=== PATIENT | female | born 2000 | race Caucasian/White ===

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

== ENCOUNTER 2018-10-17 13:58 | Emergency (ER) | payer MEDICAID ==
[~2018-10-17] VITALS: Ht 165.1 cm; Wt 94.1 kg
[2018-10-17 14:09] VITALS: Ht 165.1 cm; Wt 94.1 kg
[2018-10-17 14:39] LABS: APPEARANCE HAZY (CLEAR); COLOR YELLOW (YELLOW); NITRITE NEGATIVE (NEGATIVE); SPECIFIC GRAVITY 1.025 (1.005-1.020)
[2018-10-17 14:40] LABS: BILIRUBIN NEGATIVE (NEGATIVE); GLUCOSE NEGATIVE (NEGATIVE); KETONE MODERATE mg/dL (NEGATIVE); PROTEIN 1+ mg/dL (NEGATIVE); UROBILINOGEN NORMAL (NORMAL)
[2018-10-17 14:41] LABS: BACTERIA MANY /hpf (NONE SEEN); RED CELLS - URINE 0-5 /hpf (0-5); WHITE CELLS - URINE 0-5 /hpf (0-5)
[2018-10-17 14:42] LABS: AMORPHOUS SEDIMENT <1+ /lpf (NONE SEEN); HYALINE CAST OCC /lpf (NONE SEEN); MUCUS >1+ /lpf (NONE SEEN)
[2018-10-17 14:45] LABS: BASOPHILS 0.1 % (0-2); EOSINOPHILS 0.8 % (0-7); HEMATOCRIT 42.9 % (36.0-48.0); IMMATURE GRANULOCYTES 0.2 % (0-5); LYMPHOCYTES 14.4 % (15-50); MCH 30.3 pg (26.0-34.0); MCV 86.7 fL (80.0-100.0); MEAN PLATELET VOLUME 11.3 fL (7.4-10.4); MONOCYTES 4.7 % (2-11); NEUTROPHILS 79.8 % (40-80); PLATELET COUNT 215 10x3/uL (130-400); RBC 4.95 10x6/uL (4.00-5.40); WBC 12.3 10x3/uL (4.8-10.8)
[2018-10-17 15:03] LABS: ALBUMIN 3.5 g/dL (3.4-5.0); ALKALINE PHOSPHATASE 47 U/L (46-116); ALT (SGPT) 60 U/L (10-68); BILIRUBIN - TOTAL 0.36 mg/dL (0.2-1.3); CALC OSMOLALITY 269 mosm/kg (275-300); CALCIUM 9.2 mg/dL (8.5-10.1); CARBON DIOXIDE 23.3 mmol/L (21.0-32.0); CHLORIDE - SERUM 103 mmol/L (98-107); CREATININE - SERUM 0.5 mg/dL (0.6-1.3); GLUCOSE 78 mg/dL (74-106); POTASSIUM - SERUM 3.7 mmol/L (3.5-5.1); PROTEIN - SERUM 7.6 g/dL (6.4-8.2); SODIUM 137 mmol/L (136-145); UREA NITROGEN 5 mg/dL (7-18); eGFR NON AFRICAN AMERICAN > 90 mL/min (90-120)
[2018-10-17 15:38] LABS: HCG - QUANTITATIVE (MATERNAL) 89880 mIU/mL
[2018-10-17] MEDS ORDERED: ZOFRAN ODT4 MG/UDTAB PO (17:46)
[2018-10-17 17:53] VITALS: BP 125/48
== END 2018-10-17 17:54 | disposition home or self-care (01) ==
LOC: D.ER 13:58
PROVIDERS: Family Medicine
DX: O26.891 Other specified pregnancy related conditions, first trimester (principal); Z3A.13 13 weeks gestation of pregnancy; R10.9 Unspecified abdominal pain

== ENCOUNTER 2018-11-11 23:13 | Emergency (ER) | payer MEDICAID ==
[~2018-11-11] VITALS: Ht 165.1 cm; Wt 95.5 kg
[~2018-11-11 23:13] MED LIST: ZOFRAN ODT4 MG/UDTAB PO
[2018-11-11 23:17] VITALS: Ht 165.1 cm; Wt 95.5 kg
[2018-11-11 23:56] LABS: HEMATOCRIT 39.6 % (36.0-48.0); HEMOGLOBIN 14.1 g/dL (12-16); LYMPHOCYTES 20.2 % (15-50); MCH 30.7 pg (26.0-34.0); MCHC 35.6 g/dL (31.0-37.0); MCV 86.3 fL (80.0-100.0); PLATELET COUNT 201 10x3/uL (130-400); RBC 4.59 10x6/uL (4.00-5.40); WBC 12.3 10x3/uL (4.8-10.8)
--- NOTE | 2018-11-12 | NUR ---
DR. SOLIS NOTIFIED AND REVIEWED PT'S BEHAVIOR AND ASSESSMENT RESULTS. PT IS A LOW RISK PER DR. COLLIER. DR. COLLIER STATED TO GIVE RESOURCES TO PT AT THE TIME DISCHARGE. NO FURTHER ORDERS AT THIS TIME. RESOURCES REVIEWED WITH PT AND SHE VERBALIZED UNDERSTANDING.
[2018-11-12 00:01] LABS: ALBUMIN 3.2 g/dL (3.4-5.0); ALKALINE PHOSPHATASE 48 U/L (46-116); ALT (SGPT) 19 U/L (10-68); BILIRUBIN - TOTAL 0.22 mg/dL (0.2-1.3); CALC OSMOLALITY 274 mosm/kg (275-300); CALCIUM 9.2 mg/dL (8.5-10.1); CARBON DIOXIDE 25.4 mmol/L (21.0-32.0); CHLORIDE - SERUM 104 mmol/L (98-107); CREATININE - SERUM 0.6 mg/dL (0.6-1.3); GLUCOSE 88 mg/dL (74-106); POTASSIUM - SERUM 3.3 mmol/L (3.5-5.1); PROTEIN - SERUM 7.2 g/dL (6.4-8.2); SODIUM 140 mmol/L (136-145); UREA NITROGEN 5 mg/dL (7-18); eGFR NON AFRICAN AMERICAN > 90 mL/min (90-120)
[2018-11-12 00:07] LABS: APPEARANCE HAZY (CLEAR); BILIRUBIN NEGATIVE (NEGATIVE); COLOR YELLOW (YELLOW); GLUCOSE NEGATIVE (NEGATIVE); KETONE MODERATE mg/dL (NEGATIVE); NITRITE NEGATIVE (NEGATIVE); PROTEIN NEGATIVE (NEGATIVE); SPECIFIC GRAVITY 1.015 (1.005-1.020); UROBILINOGEN NORMAL (NORMAL)
[2018-11-12 00:09] LABS: BACTERIA MANY /hpf (NONE SEEN); EPITHELIAL CELLS 0-5 /hpf (0-5); RED CELLS - URINE 0-5 /hpf (0-5); WHITE CELLS - URINE 0-5 /hpf (0-5)
[2018-11-12 00:25] LABS: HCG - QUANTITATIVE (MATERNAL) 22108 mIU/mL
[2018-11-12] MEDS ORDERED: ZOFRAN ODT4 MG/UDTAB PO (01:30)
[2018-11-12 01:46] VITALS: BP 121/72
== END 2018-11-12 01:45 | disposition home or self-care (01) ==
LOC: D.ER 23:13
PROVIDERS: Family Medicine
DX: O26.852 Spotting complicating pregnancy, second trimester (principal); Z3A.17 17 weeks gestation of pregnancy

== ENCOUNTER 2019-11-12 13:36 | Emergency (ER) | payer MEDICAID ==
[~2019-11-12] VITALS: Ht 165.1 cm; Wt 108.2 kg
[2019-11-12 13:45] VITALS: Ht 165.1 cm; Wt 108.2 kg
[2019-11-12 14:33] LABS: BASOPHILS 0.3 % (0-2); EOSINOPHILS 3.7 % (0-7); HEMOGLOBIN 13.5 g/dL (12-16); IMMATURE GRANULOCYTES 0.4 % (0-5); LYMPHOCYTES 23.3 % (15-50); MCH 26.2 pg (26.0-34.0); MCHC 31.4 g/dL (31.0-37.0); MCV 83.5 fL (80.0-100.0); MEAN PLATELET VOLUME 10.7 fL (7.4-10.4); NEUTROPHILS 67.3 % (40-80); PLATELET COUNT 235 10x3/uL (130-400); RBC 5.15 10x6/uL (4.00-5.40); RDW 14.3 % (11.5-14.5); WBC 11.8 10x3/uL (4.8-10.8)
[2019-11-12 14:49] LABS: HCG URINE NEGATIVE (NEGATIVE)
[2019-11-12 14:50] LABS: BILIRUBIN NEGATIVE (NEGATIVE); GLUCOSE NEGATIVE (NEGATIVE); KETONE NEGATIVE (NEGATIVE); NITRITE NEGATIVE (NEGATIVE); SPECIFIC GRAVITY 1.025 (1.005-1.020); UROBILINOGEN NORMAL (NORMAL)
[2019-11-12 14:51] LABS: RED CELLS - URINE NONE SEEN /hpf (0-5)
[2019-11-12 14:52] LABS: BACTERIA FEW /hpf (NEGATIVE); EPITHELIAL CELLS 0-5 /hpf (0-5)
[2019-11-12 14:59] LABS: CALC OSMOLALITY 275 mosm/kg (275-300); CALCIUM 8.8 mg/dL (8.5-10.1); CARBON DIOXIDE 26.5 mmol/L (21.0-32.0); CHLORIDE - SERUM 106 mmol/L (98-107); CREATININE - SERUM 0.8 mg/dL (0.6-1.3); GLUCOSE 84 mg/dL (74-106); POTASSIUM - SERUM 3.6 mmol/L (3.5-5.1); SODIUM 140 mmol/L (136-145); UREA NITROGEN 8 mg/dL (7-18); eGFR NON AFRICAN AMERICAN > 90 mL/min (90-120)
[2019-11-12 15:05] LABS: ALBUMIN 3.7 g/dL (3.4-5.0); ALKALINE PHOSPHATASE 96 U/L (30-120); ALT (SGPT) 42 U/L (10-68); BILIRUBIN - TOTAL 0.14 mg/dL (0.2-1.3); PROTEIN - SERUM 7.9 g/dL (6.4-8.2)
[2019-11-12] MEDS ORDERED: MACROBID100 MG PO (16:31)
[2019-11-12 16:50] VITALS: BP 117/76
[2019-11-12 20:15] LABS: UDS - AMPHET NEGATIVE QUAL (NEGATIVE); UDS - BARB NEGATIVE QUAL (NEGATIVE); UDS - BENZO NEGATIVE QUAL (NEGATIVE); UDS - COCAINE NEGATIVE QUAL (NEGATIVE); UDS - OPIATE NEGATIVE QUAL (NEGATIVE); UDS - PCP NEGATIVE QUAL (NEGATIVE); UDS - THC POSITIVE QUAL (NEGATIVE)
== END 2019-11-12 16:57 | disposition home or self-care (01) ==
LOC: D.ER 13:36
PROVIDERS: Family Medicine
DX: R56.9 Unspecified convulsions (principal); R51 Headache; N39.0 Urinary tract infection, site not specified; W19.XXXA Unspecified fall, initial encounter; Y93.9 Activity, unspecified; Y92.9 Unspecified place or not applicable

== ENCOUNTER → 2019-11-25 08:19 | Outpatient (CLI) | payer MEDICAID ==
[2019-11-12 13:45] VITALS: BMI 39.6
--- NOTE | ~2019-11-25 | EEG ---
PATIENT:MARIANELA JUSTIN MEDICAL RECORD: [id number] DATE OF : [birth year] LOCATION: D.MRI ADMISSION DATE: 11/25/19 REFERRING PHYSICIAN: INTERPRETING PHYSICIAN: SYLVESTER VILLANUEVA MD DATE OF SERVICE: 11/25/2019 DATE OF EE11/25/2019 ORDERED BY: Dr. Villanueva. CASE HISTORY: A 19-year-old female with outpatient neurology consultation obtaining the history of the patient experiencing spells of metallic taste in mouth, nosebleeds, then stiffening and collapse, and tremors of the arms. The patient wakes up with postictal fatigue and weakness and dizziness with amnesia for the event. Last spell 1 week prior to test. MEDICATIONS: Include Topamax, cyclobenzaprine and mood medicine. Procedure EEG done as a routine outpatient laboratory recording using the standard 10-20 international electrode system. A 16-channel was used with 17th as EKG. Photic stimulation and hyperventilation were done as activation procedures. DESCRIPTION: EEG opens with the patient awake with the record displaying a well-organized posterior dominant rhythm of 11 Hz, the patient transitions in and out of drowsiness later in the record. Observed in the record was occasional to frequent bilateral independent single theta slow waves as well as independent single sharp waves, there were observed runs of semi-rhythmic theta often with sharp contour in the bilateral frontal regions, more prominent in the right hemisphere than left at F4 and C4. Frequent complexes of often high voltage sharply contoured theta with and without sharp activities as well as complexes of semi-rhythmic high voltage sharp waves were seen in the right hemisphere more than the left, again at F4-C4 and less frequently at F7 and T3. Frequent complexes of sharps and slows were seen often with short duration sharps at F4 and C4 and less F3 and T3, probable spikes were seen in the same distribution, most prominently at F4 and C4. Photic stimulation did not yield a significant driving response. There was a photomyogenic or photoparoxysmal response seen. Hyperventilation did not yield significant buildup in background voltages, paroxysmal response was not observed. 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 TRANSINT:[id number] Voice Confirmation ID: [id number] DOCUMENT ID: [id number] ELECTROENCEPHALOGRAM REPORT [id number] MARIANELA JUSTIN JAMES EDWARD MD CC: [id number] DICTATION DATE: 11/27/19 1053 STUMMEL SELECTOR: 11/27/19 1456 DEP CLI 11/25/19 [place] [id number]
[~2019-11-25 08:19] MED LIST changes: +MACROBID100 MG PO
== END | disposition home or self-care (01) ==
LOC: D.MRI 08:19
PROVIDERS: ATTEND Psychiatry & Neurology Neurology
DX: G40.109 Localization-related (focal) (partial) symptomatic epilepsy and epileptic syndromes with simple partial seizures, not intractable, without status epilepticus (principal)

== ENCOUNTER → 2020-02-24 12:51 | Outpatient (CLI) | payer MEDICAID ==
[2019-11-12 13:45] VITALS: BMI 39.6
[2020-02-24 13:50] LABS: BASOPHILS 0.2 % (0-2); EOSINOPHILS 2.3 % (0-7); HEMOGLOBIN 13.9 g/dL (12-16); IMMATURE GRANULOCYTES 0.2 % (0-5); LYMPHOCYTES 27.3 % (15-50); MCH 26.2 pg (26.0-34.0); MCHC 32.3 g/dL (31.0-37.0); MEAN PLATELET VOLUME 10.3 fL (7.4-10.4); MONOCYTES 6.4 % (2-11); NEUTROPHILS 63.6 % (40-80); PLATELET COUNT 284 10x3/uL (130-400); RBC 5.31 10x6/uL (4.00-5.40); RDW 16.2 % (11.5-14.5); WBC 13.3 10x3/uL (4.8-10.8)
[2020-02-24 14:29] LABS: ALBUMIN 3.6 g/dL (3.4-5.0); ALKALINE PHOSPHATASE 81 U/L (30-120); ALT (SGPT) 57 U/L (10-68); CALC OSMOLALITY 272 mosm/kg (275-300); CALCIUM 8.4 mg/dL (8.5-10.1); CARBON DIOXIDE 20.7 mmol/L (21.0-32.0); CHLORIDE - SERUM 108 mmol/L (98-107); CREATININE - SERUM 0.7 mg/dL (0.6-1.3); GLUCOSE 89 mg/dL (74-106); POTASSIUM - SERUM 3.5 mmol/L (3.5-5.1); PROTEIN - SERUM 7.2 g/dL (6.4-8.2); SODIUM 138 mmol/L (136-145); UREA NITROGEN 7 mg/dL (7-18); eGFR NON AFRICAN AMERICAN > 90 mL/min (90-120)
== END | disposition home or self-care (01) ==
LOC: D.LAB 12:51
PROVIDERS: ATTEND Psychiatry & Neurology Neurology
DX: R56.9 Unspecified convulsions (principal)

== ENCOUNTER 2020-08-23 12:07 | Emergency (ER) | payer MEDICAID ==
[~2020-08-23] VITALS: Ht 165.1 cm; Wt 104.5 kg
[2020-08-23 12:49] VITALS: BP 151/78; Ht 165.1 cm; Wt 104.5 kg
[2020-08-23 14:05] LABS: BASOPHILS 0.3 % (0-2); CALC OSMOLALITY 274 mosm/kg (275-300); CALCIUM 8.8 mg/dL (8.5-10.1); CARBON DIOXIDE 23.4 mmol/L (21.0-32.0); CHLORIDE - SERUM 108 mmol/L (98-107); CREATININE - SERUM 0.7 mg/dL (0.6-1.3); EOSINOPHILS 1.1 % (0-7); GLUCOSE 79 mg/dL (74-106); HEMATOCRIT 43.6 % (36.0-48.0); HEMOGLOBIN 14.1 g/dL (12-16); IMMATURE GRANULOCYTES 0.2 % (0-5); LYMPHOCYTE ABS# 3.16 10x3/uL (1.18-3.74); LYMPHOCYTES 32.4 % (15-50); MCH 26.7 pg (26.0-34.0); MCHC 32.3 g/dL (31.0-37.0); MCV 82.4 fL (80.0-100.0); MEAN PLATELET VOLUME 10.7 fL (7.4-10.4); MONOCYTES 4.5 % (2-11); NEUTROPHIL ABS# 5.98 10x3/uL (1.56-6.13); NEUTROPHILS 61.5 % (40-80); PLATELET COUNT 230 10x3/uL (130-400); POTASSIUM - SERUM 3.3 mmol/L (3.5-5.1); RBC 5.29 10x6/uL (4.00-5.40); RDW 15.1 % (11.5-14.5); SODIUM 139 mmol/L (136-145); UREA NITROGEN 6 mg/dL (7-18); WBC 9.7 10x3/uL (4.8-10.8); eGFR NON AFRICAN AMERICAN > 90 mL/min (90-120)
[2020-08-23 14:11] LABS: ALBUMIN 3.5 g/dL (3.4-5.0); ALKALINE PHOSPHATASE 62 U/L (30-120); ALT (SGPT) 26 U/L (10-68); PROTEIN - SERUM 7.2 g/dL (6.4-8.2)
[2020-08-23 15:58] LABS: BILIRUBIN NEGATIVE (NEGATIVE); KETONE NEGATIVE (NEGATIVE); NITRITE NEGATIVE (NEGATIVE); UROBILINOGEN NORMAL mg/dL (< 2)
[2020-08-23 16:01] LABS: BACTERIA MODERATE HPF (NONE SEEN); UDS - AMPHET NEGATIVE QUAL (NEGATIVE); UDS - BARB NEGATIVE QUAL (NEGATIVE); UDS - BENZO NEGATIVE QUAL (NEGATIVE); UDS - COCAINE NEGATIVE QUAL (NEGATIVE); UDS - OPIATE NEGATIVE QUAL (NEGATIVE); UDS - PCP NEGATIVE QUAL (NEGATIVE); UDS - THC POSITIVE QUAL (NEGATIVE)
[2020-08-23] MEDS ORDERED: CEPHALEXIN125 MG/5 M PO (16:10)
[2020-08-23] MEDS ORDERED: MACROBID100 MG PO (16:10)
== END 2020-08-23 16:51 | disposition home or self-care (01) ==
LOC: D.ER 12:07
PROVIDERS: Emergency Medicine
DX: N39.0 Urinary tract infection, site not specified (principal); W10.9XXA Fall (on) (from) unspecified stairs and steps, initial encounter; Y93.9 Activity, unspecified; Y92.9 Unspecified place or not applicable; E87.6 Hypokalemia; R51.9 Headache, unspecified

== ENCOUNTER 2020-09-20 21:15 | Emergency (ER) | payer MEDICAID ==
[~2020-09-20] VITALS: Ht 165.1 cm; Wt 110.5 kg
[~2020-09-20 21:15] MED LIST changes: +CEPHALEXIN125 MG/5 M PO
[2020-09-20 21:36] VITALS: BP 117/77; Ht 165.1 cm; Wt 110.5 kg
== END 2020-09-20 23:51 | disposition home or self-care (01) ==
LOC: D.ER 21:15
DX: G43.909 Migraine, unspecified, not intractable, without status migrainosus (principal); R11.2 Nausea with vomiting, unspecified